=== PATIENT | male | born 1960 | race Caucasian/White ===

== ENCOUNTER 2017-02-18 00:26 | Emergency (ER) | payer SELFPAY ==
[~2017-02-18] VITALS: Ht 172.7 cm; Wt 80.0 kg
[2017-02-18 00:43] VITALS: BP 117/83; PULSE 96; RESP 18; TEMP 98.2; O2SAT 97
[2017-02-18 01:25] LABS: AUTOMATED NEUTROPHIL # 7.2 TH/MM3 (1.8-7.7); BASOPHIL # 0.1 TH/MM3 (0-0.2); BASOPHIL % 0.6 % (0.0-2.0); EOSINOPHIL # 0.1 TH/MM3 (0-0.4); EOSINOPHIL % 0.8 % (0.0-4.0); HEMO FLAGS DIFF FINAL; LYMPH % 19.7 % (9.0-44.0); LYMPHOCYTE # 2.1 TH/MM3 (1.0-4.8); MEAN CELL VOLUME 79.3 FL (80.0-100.0); MEAN CORPUSCULAR HEMOGLOBIN 25.7 PG (27.0-34.0); MEAN CORPUSCULAR HGB CONC 32.4 % (32.0-36.0); MONO % 10.4 % (0.0-8.0); NEUT % 68.5 % (16.0-70.0); PLATELET COUNT 187 TH/MM3 (150-450); RED BLOOD COUNT 4.92 MIL/MM3 (4.50-5.90); RED CELL DISTRIBUTION WIDTH 16.8 % (11.6-17.2); WHITE BLOOD COUNT 10.5 TH/MM3 (4.0-11.0)
--- NOTE | 2017-02-18 01:50 | RADRPT ---
EXAM DATE/TIME: 02/18/2017 01:06 [place] COMPARISON: No previous studies available for comparison. INDICATIONS : Shortness of breath. MEDICAL HISTORY : None. SURGICAL HISTORY : Pacemaker. Valve replacement ENCOUNTER: Initial ACUITY: 1 day PAIN SCORE: 0/10 LOCATION: Bilateral chest FINDINGS: A single view of the chest demonstrates cardiomegaly. Pacer leads overlying right atrium and right ve ntricle. Median sternotomy. Minimal basal atelectasis. CONCLUSION: Cardiomegaly. Minimal basal atelectasis. Pacer leads overlie right atrium and right ventricle. Ze Chaves MD on February 18, 2017 at 1:47 Board Certified Radiologist. This report was verified electronically.
[2017-02-18 01:53] LABS: APTT (PATIENT) 29.4 SEC (24.3-30.1); INTERNATIONAL NORMALIZED RATIO 1.5 RATIO; PROTHROMBIN TIME - PATIENT 16.9 SEC (9.8-11.6)
--- NOTE | 2017-02-18 01:59 | PD ---
HPI Chief Complaint: Chest Pain Time Seen by Provider: 00:51 Travel History International Travel<30 days: No Contact w/Intl Traveler<30days: No Traveled to known affect area: No History of Present Illness HPI Is a 56-year-old male presents emergent from complaining of shortness of breath and dyspnea on exertion. He is a history of heart failure, as well as recent TAVR done in [place]. He reports since then he continues of shortness of breath and dyspnea on exertion and orthopnea. Started getting some chest pain this afternoon. He's had a slight increase in his lower extremity edema is been going on since yesterday. States is been compliant with all his medications. 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 History Past Medical History Narrative Medical A. fib, on warfarin CHF Hypertension History of TAVR about 6 weeks ago Social History Alcohol Use: Yes Tobacco Use: No Allergies-Medications (Allergen,Severity, Reaction): Coded Allergies: Albuterol (Verified Allergy, Mild, 02/18/17) States allergic to the inhalant in the MDI, but can use nebulizer Review of Systems Except as stated in HPI: all other systems reviewed are Neg Physical Exam Narrative GENERAL: Well-appearing 56-year-old man, no acute distress. SKIN: Focused skin assessment warm/dry. HEAD: Atraumatic. Normocephalic. EYES: Pupils equal and round. No scleral icterus. No injection or drainage. ENT: No nasal bleeding or discharge. Mucous membranes pink and moist. NECK: Trachea midline. No JVD. CARDIOVASCULAR: Regular rate and rhythm. No murmur appreciated. RESPIRATORY: No accessory muscle use. Clear to auscultation. Breath sounds equal bilaterally. GASTROINTESTINAL: Abdomen soft, non-tender, nondistended. Hepatic and splenic margins not palpable. MUSCULOSKELETAL: No obvious deformities. Trace edema. NEUROLOGICAL: Awake and alert. No obvious cranial nerve deficits. Motor grossly within normal limits. Normal speech. PSYCHIATRIC: Appropriate mood and affect; insight and judgment normal. Data Data Last Documented VS Vital Signs Date Time Temp Pulse Resp B/P Pulse Ox O2 Delivery O2 Flow Rate FiO2 02/18/17 00:49 94 18 98 Nasal Cannula 2 02/18/17 00:43 98.2 117/83 Orders Electrocardiogram (02/18/17 00:56) Complete Blood Count With Diff (02/18/17 00:56) Basic Metabolic Panel (Bmp) (02/18/17 00:56) Ckmb (Isoenzyme) Profile (02/18/17 00:56) Troponin I (02/18/17 00:56) Chest, Single Ap (02/18/17 00:56) Iv Access Insert/Monitor (02/18/17 00:56) Ecg Monitoring (02/18/17 00:56) Oxygen Administration (02/18/17 00:56) Oximetry (02/18/17 00:56) Act Partial Throm Time (Ptt) (02/18/17 00:56) Prothrombin Time / Inr (Pt) (02/18/17 00:56) B-Type Natriuretic Peptide (02/18/17 01:00) CKMB (02/18/17 01:10) CKMB% (02/18/17 01:10) Bumetanide Inj (Bumex Inj) (02/18/17 03:00) Labs Laboratory Tests Test 02/18/17 01:10 White Blood Count 10.5 TH/MM3 Red Blood Count 4.92 MIL/MM3 Hemoglobin 12.6 GM/DL Hematocrit 39.0 % Mean Corpuscular Volume 79.3 FL Mean Corpuscular Hemoglobin 25.7 PG Mean Corpuscular Hemoglobin 32.4 % Concent Red Cell Distribution Width 16.8 % Platelet Count 187 TH/MM3 Mean Platelet Volume 8.1 FL Neutrophils (%) (Auto) 68.5 % Lymphocytes (%) (Auto) 19.7 % Monocytes (%) (Auto) 10.4 % Eosinophils (%) (Auto) 0.8 % Basophils (%) (Auto) 0.6 % Neutrophils # (Auto) 7.2 TH/MM3 Lymphocytes # (Auto) 2.1 TH/MM3 Monocytes # (Auto) 1.1 TH/MM3 Eosinophils # (Auto) 0.1 TH/MM3 Basophils # (Auto) 0.1 TH/MM3 CBC Comment DIFF FINAL Differential Comment Prothrombin Time 16.9 SEC Prothromb Time International 1.5 RATIO Ratio Activated Partial 29.4 SEC Thromboplast Time Sodium Level 137 MEQ/L Potassium Level 4.5 MEQ/L Chloride Level 103 MEQ/L Carbon Dioxide Level 25.1 MEQ/L Anion Gap 9 MEQ/L Blood Urea Nitrogen 18 MG/DL Creatinine 0.87 MG/DL Estimat Glomerular Filtration 90 ML/MIN Rate Random Glucose 104 MG/DL Calcium Level 8.8 MG/DL Total Creatine Kinase 170 U/L Creatine Kinase MB 4.9 NG/ML Troponin I 0.05 NG/ML B-Type Natriuretic Peptide 2774 PG/ML [facility] Medical Decision Making Medical Screen Exam Complete: Yes Emergency Medical Condition: Yes Interpretation(s) My review of EKG: A. fib at a rate of 101, leftward axis, left bundle branch block, no definite evidence of acute ischemia CBC unremarkable. CMP unremarkable Troponin negative BNP 2774 Coags INR 1.5 Chest x-ray: Cardiomegaly. Minimal basilar atelectasis. Differential Diagnosis COPD, pulmonary hypertension, PE, A. fib, other Narrative Course Medical decision-making INITIAL: 56-year-old man presents emergent process subacute worsening shortness of breath this on exertion with a history of valve disease, CHF, CAD. He looks overall well. I don't see any evidence of obvious volume overload. We'll check labs, x-ray, EKG, reassess. : 56 YEAR-OLD MAN, GENERALLY WELL-APPEARING, SOME INCREASED CHF SYMPTOMS. LOOKS OVERALL WELL. BNP IS PRETTY ELEVATED. IS NOT OBVIOUS PAPILLEDEMA IS CHEST X-RAY. RECOMMEND A SHORT PERIOD OF DOUBLING HIS DIURETIC. The legs taking Lasix or Bumex at home, he can't really tell me which one. He also needs outpatient follow-up. We'll give him a form for [facility]. Diagnosis Primary Impression: CHF (congestive heart failure) Referrals: [facility] 1 week Additional Instructions: Follow-up with [facility]ia[facility] next week. Double your diuretic taking 1 tablet in the morning, 1 tablet 6 hours later for the next 5 days. Double your potassium for the next 5 days as well. Return to the emergency department for any new or worsening symptoms. Med/Other Pt SpecificInfo: Prescription(s) given Disposition: 01 DISCHARGE HOME Condition: Stable Richard Armando MD Feb 18, 2017 01:59
[2017-02-18 02:00] LABS: ANION GAP 9 MEQ/L (5-15); BICARBONATE 25.1 MEQ/L (21.0-32.0); BLOOD UREA NITROGEN 18 MG/DL (7-18); CHLORIDE 103 MEQ/L (98-107); CREATINE KINASE 170 U/L (39-308); GLOMERULAR FILTRATION RATE 90 ML/MIN (>89); POTASSIUM 4.5 MEQ/L (3.5-5.1); SODIUM (NA) 137 MEQ/L (136-145)
[2017-02-18 02:13] LABS: CKMB 4.9 NG/ML (0.5-3.6)
[2017-02-18] MEDS ORDERED: BUMETANIDE INJ 1 MG/4 ML VIAL IV PUSH ONE (03:00)
--- NOTE | 2017-02-18 13:09 | EKG ---
Date Performed: 02/18/2017 Time Performed: 00:46:01 PTAGE: 56 years EKG: ATRIAL FIBRILLATION WITH RAPID VENTRICULAR RESPONSE LEFT BUNDLE BRANCH BLOCK ABNORMAL ECG NO PREVIOUS TRACING DOCTOR: John Agosto Interpretating Date/Time 02/18/2017 13:06:53
== END 2017-02-18 04:31 | disposition home or self-care (01) ==
LOC: NEPC 00:26
DX: I50.9 Heart failure, unspecified (principal); I10 Essential (primary) hypertension; I48.91 Unspecified atrial fibrillation; Z79.01 Long term (current) use of anticoagulants
CPT/HCPCS: 71010; 80048; 82550; 82552; 83880; 84484; 85025; 85610; 85730; 93005; 96374